=== PATIENT | male | born 2000 | race Two or more races ===

== ENCOUNTER 2021-01-01 14:44 | Emergency (ER) | payer OTHER ==
[~2021-01-01] VITALS: Ht 180.3 cm; Wt 75.0 kg
[2021-01-01] MEDS ORDERED: cold medicine (14:56)
--- NOTE | 2021-01-01 16:39 | REP ---
INDICATION: L flank pain into testicle, ro Stone. COMPARISON: None. TECHNIQUE: Noncontrast renal stone protocol with coronal and sagittal reconstructions provided. FINDINGS: CT abdomen: Lung bases are clear. Heart is not enlarged there is no pericardial thickening or effusion. No hiatal hernia. The liver, spleen, gallbladder, pancreas, adrenal glands and stomach were grossly intact there is retained food in the stomach without abnormal distention. Small bowel loops are not abnormally dilated and shows scattered areas with fluid no evidence of colonic distention or inflammatory changes adjacent to the colon lung window review of all CT slices abdomen and pelvis shows no perforation or free air. No generalized ascites. The right kidney is 10.4 in the left kidney 11 cm in greatest length. The have symmetric attenuation I do not see hydronephrosis nor is there stone, mass or cyst. No perinephric edema the aorta is without aneurysm. No periaortic, retroperitoneal or mesenteric pathologic lymphadenopathy. No ventral hernia. Bone windows show the lumbar and lower thoracic spine and their posterior elements intact. Visualized ribs were also intact. CT pelvis: Sacrum, SI joints, pelvis and hips show no acute finding. Course of the ureters the bladder was unremarkable. There are no dilated ureters or ureteral stones identified. Bladder is only partially filled there is no stone, mass or any definite bladder wall thickening. There are couple of phleboliths in the left side of the pelvis. These are not definitely in the ureter. Ureter appears to pass nearby, separate from them. No pelvic ascites or adenopathy. Small bowel loops are unremarkable. There is no ventral or inguinal hernia in the pelvis. No inguinal adenopathy. There are no inflammatory changes about the cecum to suggest appendicitis although the appendix is difficult to identify with confidence because of low body fat percentage. IMPRESSION: No renal, ureteral or bladder stone. I see no hydronephrosis, hydroureter, inguinal hernia or mass. Solid organs in the upper abdomen were unremarkable. Kidneys were symmetric without sign of pyelonephritis, mass or cyst. No perinephric fluid or periureteral fluid. Visualized bones are intact. Nothing acute. <Electronically signed by Blu Freeman > 01/01/21 [id number]
[2021-01-01 16:57] LABS: CHLAMYDIA DNA AMPLIFICATION NEGATIVE (NEGATIVE); GC DNA AMPLIFICATION NEGATIVE (NEGATIVE)
[2021-01-01 17:08] VITALS: BP 135/82
== END 2021-01-01 17:11 | disposition home or self-care (01) ==
LOC: M ED 14:44
DX: R10.9 Unspecified abdominal pain (principal); R30.0 Dysuria; K21.9 Gastro-esophageal reflux disease without esophagitis; F17.200 Nicotine dependence, unspecified, uncomplicated

== ENCOUNTER 2021-01-02 18:55 | Emergency (ER) | payer OTHER ==
[~2021-01-02] VITALS: Ht 180.3 cm; Wt 76.7 kg
[~2021-01-02 18:55] MED LIST: cold medicine
[2021-01-02] MEDS ORDERED: NS 1,000 ML IV ONE (19:15)
--- OUTSIDE RECORDS SUMMARY | 2021-01-02 19:48 | CCD ---
Author Author [facility] [place] [facility] Address Unknown Phone Unavailable Support Name Relationship Address Phone [place] Next Of Kin [address] [place] [address] Unavailable Re-disclosure Warning The records that you are about to access may contain information from federally-assisted alcohol or drug abuse programs. If such information is present, then the following federally mandated warning applies: This information has been disclosed to you from records protected by federal confidentiality rules (42 CFR part 2). The federal rules prohibit you from making any further disclosure of this information unless further disclosure is expressly permitted by the written consent of the person to whom it pertains or as otherwise permitted by 42 CFR part 2. A general authorization for the release of medical or other information is NOT sufficient for this purpose. The Federal rules restrict any use of the information to criminally investigate or prosecute any alcohol or drug abuse patient.The records that you are about to access may contain highly sensitive health information, the redisclosure of which is protected by Article 27-F of the [facility] Public Health law. If you continue you may have access to information: Regarding HIV / AIDS; Provided by facilities licensed or operated by the [facility] Office of Mental Health; or Provided by the [facility] Office for People With Developmental Disabilities. If such information is present, then the following [facility] mandated warning applies: This information has been disclosed to you from confidential records which are protected by state law. State law prohibits you from making any further disclosure of this information without the specific written consent of the person to whom it pertains, or as otherwise permitted by law. Any unauthorized further disclosure in violation of state law may result in a fine or fci sentence or both. A general authorization for the release of medical or other information is NOT sufficient authorization for further disc losure. Insurance Providers Payer name Policy type / Coverage type Policy ID Covered republican ID Covered republican's relationship to de leon Policy De Leon Plan Information [facility] [id number] Results ID Date Data Source [id number] 12/21/2020 10:07:00 AM EST [place] Name Value Range Interpretation Code Description Data Kati rce(s) Supporting Document(s) SARS coronavirus 2 RNA Not Detected [facility] This lab was ordered by [facility] and reported by [facility]. ID Date Data Source [id number] 10/25/2020 03:33:00 PM EST [place] Name Value Range Interpretation Code Description Data Kati rce(s) Supporting Document(s) SARS coronavirus 2 RNA [facility] This lab was ordered by [facility] and reported by [facility]. Procedure
--- OUTSIDE RECORDS SUMMARY | 2021-01-02 20:02 | CCD ---
Author Author [facility] Address Unknown Phone Unavailable Support Name Relationship Address Phone [facility] Next Of Kin [address] [place] [address] Unavailable Re-disclosure Warning The records that you [...] is protected by Article 27-F of the [facility] Public Health law. If you continue you may have access to information: Regarding HIV / AIDS; Provided by facilities licensed or operated by the [facility] Office of Mental Health; or Provided by the [facility] Office for People With Developmental Disabilities. If such information is present, then the following [facility] mandated warning applies: This information has been [...] law may result in a fine or longterm sentence or both. A general authorization for the release of medical or other information is NOT sufficient authorization for further disc losure. Insurance Providers Payer name Policy type / Coverage type Policy ID Covered constitution party ID Covered constitution party's relationship to de leon Policy De Leon Plan Information [facility] [employer] [id number] Results ID Date Data Source [id number] 12/21/2020 10:07:00 AM EST [facility] Name Value Range Interpretation Code Description Data Kati rce(s) Supporting Document(s) SARS coronavirus 2 RNA Not Detected [facility] This lab was ordered by [facility] and reported by [facility]. ID Date Data Source [id number] 10/25/2020 03:33:00 PM EST [facility] Name Value Range Interpretation Code Description Data Kati rce(s) Supporting Document(s) SARS coronavirus 2 RNA [facility] This lab was ordered by [facility] and reported by [facility]. Procedure
[2021-01-02 20:13] LABS: BASO % 0.2 % (0.0-1.0); EOS % 0.1 % (0.0-3.0); HEMATOCRIT 46.2 % (42.0-52.0); HEMOGLOBIN 15.2 g/dl (13.5-17.5); LYMPH % 32.9 % (24.0-44.0); MEAN CORPUSCULAR HEMOGLOBIN 30.5 pg (27.0-33.0); MEAN CORPUSCULAR HGB CONC 32.9 g/dl (32.0-36.5); MEAN CORPUSCULAR VOLUME 92.6 fl (80.0-96.0); MONO # 0.9 10^3/uL (0.0-0.8); MONO % 10.3 % (2.0-8.0); NEUTROPHILS % 56.2 % (36.0-66.0); PLATELET COUNT, AUTOMATED 170 10^3/uL (150-450); RED BLOOD COUNT 4.99 10^6/uL (4.30-6.10)
[2021-01-02 20:15] LABS: HEMOGLOBIN A1c 5.5 %
[2021-01-02 20:19] LABS: ALBUMIN 4.6 GM/DL (3.2-5.2); BILIRUBIN,DIRECT 0.2 MG/DL (0.0-0.2); BILIRUBIN,TOTAL 0.5 MG/DL (0.2-1.0); TOTAL PROTEIN 8.7 GM/DL (6.4-8.2)
--- NOTE | 2021-01-02 20:35 | REPVR ---
PROCEDURE INFORMATION: Exam: US Scrotum Exam date and time: 01/02/2021 8:25 PM Age: 20 years old Clinical indication: Scrotum pain; Additional info: Left testicle pain TECHNIQUE: Imaging protocol: Real-time ultrasound of the scrotum and contents with color Doppler and image documentation. COMPARISON: No relevant prior studies available. FINDINGS: Right testicle: Normal. No mass. No torsion. Normal vascular flow. Resistive index 0.47 Left testicle: Normal. No mass. No torsion. Normal vascular flow. Resistive index 0.5 Epididymides: Normal. Scrotum: Normal. IMPRESSION: Normal scrotal ultrasound. Electronically signed by: Jann Centeno On 01/02/2021 20:35:33 PM
[2021-01-02] MEDS ORDERED: ISOVUE-370 76% 100ML VIAL As Ordered ONE (21:30)
--- NOTE | 2021-01-02 22:21 | REPVR ---
PROCEDURE INFORMATION: Exam: CT Abdomen And Pelvis With Contrast Exam date and time: 01/02/2021 9:46 PM Age: 20 years old Clinical indication: Abdominal pain; Additional info: Left flank/abdomen pain TECHNIQUE: Imaging protocol: Computed tomography of the abdomen and pelvis with contrast. Radiation optimization: All CT scans at this facility use at least one of these dose optimization techniques: automated exposure control; mA and/or kV adjustment per patient size (includes targeted exams where dose is matched to clinical indication); or iterative reconstruction. Contrast material: ISOVUE 370; Contrast volume: 100 ml; Contrast route: INTRAVENOUS (IV); COMPARISON: CT ABD PELVIS W/O CONTRAST 01/01/2021 4:01 PM FINDINGS: Liver: Normal. No mass. Gallbladder and bile ducts: Normal. No calcified stones. No ductal dilation. Pancreas: Normal. No ductal dilation. Spleen: Normal. No splenomegaly. Adrenal glands: Normal. No mass. Kidneys and ureters: Normal. No hydronephrosis. Stomach and bowel: Unremarkable. No obstruction. No mucosal thickening. Appendix: A normal appendix is seen. Intraperitoneal space: Unremarkable. No free air. No significant fluid collection. Vasculature: Unremarkable. No abdominal aortic aneurysm. Lymph nodes: Unremarkable. No enlarged lymph nodes. Urinary bladder: Unremarkable as visualized. Reproductive: Unremarkable as visualized. Bones/joints: Unremarkable. No acute fracture. Soft tissues: Unremarkable. IMPRESSION: Negative CT abdomen/pelvis which is unchanged from 01/01/2021 Electronically signed by: Todd Nowak On 01/02/2021 22:21:51 PM
[2021-01-02 22:55] VITALS: BP 137/73
[2021-01-03 11:59] LABS: HEPATITIS B SURFACE ANTIBODY POSITIVE (POSITIVE); HEPATITIS B SURFACE ANTIGEN NEGATIVE (NEGATIVE); HEPATITIS C VIRUS ABY INDEX < 0.0 INDEX (<0.8); HIV 1&2 SCREEN CENTAUR NEGATIVE (NEGATIVE)
== END 2021-01-02 22:55 | disposition home or self-care (01) ==
LOC: M ED 18:55
DX: R10.9 Unspecified abdominal pain (principal); N50.812 Left testicular pain; R42 Dizziness and giddiness; R11.0 Nausea; R19.7 Diarrhea, unspecified; I10 Essential (primary) hypertension
CPT/HCPCS: 74177; 76870; 80047; 80076; 81001; 83036; 83690; 85025; 86706; 86780; 86803; 87340; 87389; 93976; 96360; 99284; Q9967

== ENCOUNTER 2021-02-02 15:01 | Emergency (ER) | payer OTHER ==
[~2021-02-02] VITALS: Ht 180.3 cm; Wt 81.8 kg
[2021-02-02] MEDS ORDERED: NS 1,000 ML IV ONE (16:00)
--- NOTE | 2021-02-02 16:32 | REP ---
INDICATION: chest pain COMPARISON: None. TECHNIQUE: PA/Lateral FINDINGS: Lungs: Clear, no infiltrate. Heart: Normal in size. Mediastinum: Mediastinal silhouette unremarkable. Pleural angles: Unremarkable.. Bones and soft tissues: Unremarkable. IMPRESSION: No acute pulmonary disease. <Electronically signed by Amadou Birmingham > 02/02/21 [id number]
[2021-02-02 16:44] LABS: BASO % 0.4 % (0.0-1.0); EOS # 0.1 10^3/uL (0.0-0.5); EOS % 0.9 % (0.0-3.0); HEMATOCRIT 43.7 % (42.0-52.0); HEMOGLOBIN 14.6 g/dl (13.5-17.5); LYMPH # 2.9 10^3/uL (1.5-5.0); LYMPH % 39.3 % (24.0-44.0); MEAN CORPUSCULAR HEMOGLOBIN 31.3 pg (27.0-33.0); MEAN CORPUSCULAR HGB CONC 33.4 g/dl (32.0-36.5); MEAN CORPUSCULAR VOLUME 93.8 fl (80.0-96.0); MONO # 0.8 10^3/uL (0.0-0.8); MONO % 10.3 % (2.0-8.0); NEUTROPHILS # 3.6 10^3/uL (1.5-8.5); NEUTROPHILS % 48.8 % (36.0-66.0); PLATELET COUNT, AUTOMATED 187 10^3/uL (150-450); RED BLOOD COUNT 4.66 10^6/uL (4.30-6.10); WHITE BLOOD COUNT 7.5 10^3/uL (4.0-10.0)
[2021-02-02 17:19] LABS: ALBUMIN 4.1 GM/DL (3.2-5.2); ALT/SGPT 26 U/L (12-78); BILIRUBIN,DIRECT < 0.1 MG/DL (0.0-0.2); BILIRUBIN,TOTAL 0.3 MG/DL (0.2-1.0); BLOOD UREA NITROGEN 6 MG/DL (7-18); CALCIUM LEVEL 9.3 MG/DL (8.5-10.1); CARBON DIOXIDE LEVEL 27 MEQ/L (21-32); CHLORIDE LEVEL 109 MEQ/L (98-107); CK-MB VALUE MASS 3.3 NG/ML (<3.6); CPK CREATINE PHOSPHOKINASE 183 U/L (39-308); CREATININE FOR GFR 0.87 MG/DL (0.70-1.30); FREE T4 0.72 NG/DL (0.76-1.46); GLOMERULAR FILTRATION RATE > 60.0 (>60); GLUCOSE, FASTING 114 MG/DL (70-100); LIPASE 145 U/L (73-393); POTASSIUM SERUM 4.4 MEQ/L (3.5-5.1); SODIUM LEVEL 142 MEQ/L (136-145); THYROID STIMULATING HORMONE 0.722 uIU/ML (0.358-3.740); TOTAL PROTEIN 7.5 GM/DL (6.4-8.2); TROPONIN I < 0.02 NG/ML (< 0.10)
[2021-02-02 18:48] VITALS: BP 129/82
--- NOTE | 2021-02-02 21:15 | ECGEPIP ---
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
== END 2021-02-02 18:58 | disposition home or self-care (01) ==
LOC: M ED 15:01
DX: R10.9 Unspecified abdominal pain (principal); R07.89 Other chest pain; N42.81 Prostatodynia syndrome; L65.9 Nonscarring hair loss, unspecified; R05 Cough; R11.2 Nausea with vomiting, unspecified; R19.7 Diarrhea, unspecified; I10 Essential (primary) hypertension; K21.9 Gastro-esophageal reflux disease without esophagitis; Z79.899 Other long term (current) drug therapy

== ENCOUNTER 2021-02-04 12:52 | Emergency (ER) | payer OTHER ==
[~2021-02-04] VITALS: Ht 180.3 cm; Wt 79.5 kg
[2021-02-04 12:53] VITALS: BP 123/65
[2021-02-04] MEDS ORDERED: OMEP40CA97 PO (13:14)
[2021-02-04] MEDS ORDERED: FLON1SPR NARES (13:14)
[2021-02-04] MEDS ORDERED: LEVOTAB10 PO (13:16)
[2021-02-04] MEDS ORDERED: MOME50SP NARES (13:16)
== END 2021-02-04 13:37 | disposition home or self-care (01) ==
LOC: M ED 12:52
DX: J30.9 Allergic rhinitis, unspecified (principal); K29.70 Gastritis, unspecified, without bleeding; F17.200 Nicotine dependence, unspecified, uncomplicated; Z79.899 Other long term (current) drug therapy

== ENCOUNTER 2021-04-02 12:04 | Emergency (ER) | payer OTHER ==
[~2021-04-02] VITALS: Ht 180.3 cm; Wt 75.2 kg
[~2021-04-02 12:04] MED LIST changes: +FLON1SPR NARES; +LEVOTAB10 PO; +MOME50SP NARES; +OMEP40CA97 PO
--- NOTE | 2021-04-02 13:47 | REP ---
INDICATION: bilateral flank pain, dysuria symptoms COMPARISON: Comparison CT study abdomen pelvis 01/02/2021.. TECHNIQUE: Helical scanning is acquired and 3 mm axial images were reformatted. Coronal and sagittal MPR images were generated and reviewed. FINDINGS: Digital preliminary pattern attendant radiograph demonstrates an unremarkable bowel gas pattern. The lung bases are clear on axial CT images. The liver and the spleen are normal in size and homogeneous in texture. Normal adrenal glands are seen. No abnormality is noted in the pancreas or the gallbladder. The kidneys are morphologically intact. There is no evidence of intrarenal nephrolithiasis or hydronephrosis on either side. No abnormality is noted in the pancreas. No retroperitoneal mass or adenopathy is seen. No ureteral stone or bladder calculus is appreciated. Seminal vesicles and prostate are unremarkable. There is a phlebolith in the spermatic cord on the left which is unchanged from the comparison study and incidental finding. No abdominal wall defect is seen. Small and large intestinal bowel loops are unremarkable. A normal appendix is seen in the right lower quadrant. No extra abdominal mass or adenopathy is seen. Bone window settings show no bony destructive lesion. IMPRESSION: Negative CT study of the abdomen and pelvis. No urinary tract calculus or hydronephrosis is seen. No acute abdominal or pelvic abnormality. <Electronically signed by Rommel Flores > 04/02/21 [id number]
[2021-04-02 14:21] LABS: CHLAMYDIA DNA AMPLIFICATION NEGATIVE (NEGATIVE); GC DNA AMPLIFICATION NEGATIVE (NEGATIVE)
[2021-04-02 14:59] VITALS: BP 129/71
== END 2021-04-02 15:00 | disposition home or self-care (01) ==
LOC: M ED 12:04
DX: R30.0 Dysuria (principal); Z86.19 Personal history of other infectious and parasitic diseases; F12.10 Cannabis abuse, uncomplicated

== ENCOUNTER 2021-04-23 11:46 | Emergency (ER) | payer OTHER ==
[~2021-04-23] VITALS: Ht 180.3 cm; Wt 74.5 kg
[2021-04-23 12:01] VITALS: BP 144/83
== END 2021-04-23 12:25 | disposition home or self-care (01) ==
LOC: M ED 11:46
DX: Z20.2 Contact with and (suspected) exposure to infections with a predominantly sexual mode of transmission (principal)

== ENCOUNTER 2021-04-27 14:00 | Emergency (ER) | payer OTHER ==
[~2021-04-27] VITALS: Ht 180.3 cm; Wt 73.2 kg
[2021-04-27 14:01] VITALS: BP 121/77
== END 2021-04-27 15:40 | disposition home or self-care (01) ==
LOC: M ED 14:00
DX: Z11.4 Encounter for screening for human immunodeficiency virus [HIV] (principal)